=== PATIENT | male | born 1995 | race Caucasian/White ===

== ENCOUNTER 2018-06-18 08:00 | Outpatient (RCR) | payer OTHER, SELFPAY ==
--- NOTE | 2018-06-12 10:52 | HP.PTEVAL ---
Patient's Visit Information BRIGITTE PRUETT is a 22 year old M referred to Physical Therapy by Kenneth Byrd PA-C with a diagnosis of R AC separation. Date of Evaluation: 06/12/18 Physical Therapist: Obi Boateng, CHELSEAT, OCS, CSCS - Visit Plan Frequency: 3x /Week Duration: 4-6 Weeks Plan: 3x/week for 3-6 weeks for: 1. ROM R shoulder, strength posture and RC. 2. gradual incrrease WB ex to tolerance in prep for [email or web address] sports specific. Slow steady progression. 3. may use ES, Mh as needed. - Subjective Findings: R shoulder has AC seperation sustained during [employer] race missed jump. That was two weeks ago 06/01/18. Went to ER in [facility] and got x rays which showed dislocation of AC R. Referred to [facility] and then referred to PT. Will go back again. Was in a sling for last couple weeks and taken out of sling today. No precautions given, listen to body. Pain is 2/10 at rest and lifting is 3/10, reaching back hurts alot more and reaching across body is sharp 7/10 pain. Does have some moments withotu pain. Movement hurts. Overall is 60% better. Sleeping OK, hurts if he rolls on it. otherwise sleeping well. 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 Race every two to three weeks then. Doctor told him that time frame may be unrealistic but not recommended to race in twenty days. Hasn't been back on bike. Does things left handed lately due to sling but is left handed, cant lift with R. - Pain L top shoulder. Pain Intensity (Out of 10): 2 Pain Intensity Range: 0, 7 - Objective R hump where acromion adn clavicle come together, slightly larger R vs L. Fw head and scap posture slightly. C/S aROM WFL and without pain. reflexes 2/3 bi and tri. Tender to palpation over AC joint R moderatley. sensation B UE WNl to gross light touch. AROM R shoulder is full but slow and painful at end rangess of flexion, abd, ext rot and IR. horiz adduction is limited to just shy of neutral at 80 flexion. PROM numbers are consistent with active. Strength in ext rotation R 4- IR 4+, flexion 4- and abd 4- and painful with er, flexion, abd slightly. L shoulder is 5/5. Biceps wrist adn thumb srength adn mtoion WNL. - ext rotation lag test, - drop arm today, - HK test. - Goals Goal 1:: Sleep without noticing R shoulder Goal Time Frame: 2-4 Weeks Goal 2:: Full aROM without pain Goal Time Frame: 2-4 Weeks Goal 3:: Patient able to tolerate UE WB without noticing R shoulder Goal Time Frame: 2-4 Weeks Goal 4:: Patient ready to get back to motocross riding Goal Time Frame: 4-6 Weeks Goal 5:: Pt feel 100% back to normal Goal Time Frame: 4-6 Weeks - Rehabilitation Potential Physical Therapy Diagnosis: R AC separation traumatic. Rehabilitation Potential: Fair - Anticipated Interventions Patient/Client Instruction: Educate patient on: Condition, Plan of Care For the Purpose of:: To decrease pain, To increase ROM, To improve nutrient delivery to tissue, To improve muscle performance and motor function, To improve ability of physical actions for home/community/work/leisure Therapeutic Exercise to Include: Strength training, Flexibilty training, Passive ROM, Active ROM For the Purpose of:: To decrease pain, To increase ROM, To improve nutrient delivery to tissue, To increase tolerance to activity/condition/position, To improve ability of physical actions for home/community/work/leisure TENS: Yes Cryotherapy (ice pack, ice massage): Yes For the Purpose of:: To decrease pain Thank you for the opportunity to evaluate your patient. For Medicare and Medicare HMO plans, please review the plan of care and approve it. It will need to be FAXED BACK to us at [phone] for Medicare purposes. For Medicare only, by signing this I certify the plan of care. Please let me know if there are questions or concerns regarding this plan of care. Physician Signature: Date:
--- NOTE | 2018-07-22 16:22 | HP.PTDCNRP_ITS ---
HP - Discharge Summary (1) - Patient Information BRIGITTE PRUETT was seen in my office for initial evaluation on 06/12/18. The following Plan of Care was established for this patient: Initial Frequency: 3x /Week Initial Duration: 4-6 Weeks - Anticipated Interventions Patient/Client Instruction: Educate patient on: Condition, Plan of Care For the Purpose of:: To decrease pain, To increase ROM, To improve nutrient de livery to tissue, To improve muscle performance and motor function, To improve ability of physical actions for home/community/work/leisure Therapeutic Exercise to Include: Strength training, Flexibilty training, Passive ROM, Active ROM For the Purpose of:: To decrease pain, To increase ROM, To improve nutrient delivery to tissue, To increase tolerance to activity/condition/position, To improve ability of physical actions for home/community/work/leisure TENS: Yes Cryotherapy (ice pack, ice massage): Yes For the Purpose of:: To decrease pain This patient was last seen in our office 06/18/18. Pertinent comments regarding their Physical therapy will appear below: Pt seen 3 visits of POC. He cancelled or no showed for the next three and neglected to reschedule. IT has been over a month and I will discontinue due to nonattendance. At this point I will be discontinuing this patient from physical therapy. I would be happy to see this patient again in the future if found appropriate by the physician. Thank you! Obi Boateng, DPT, OCS, CSCS
== END 2018-06-18 19:00 | disposition home or self-care (01) ==
LOC: PT 08:00
PROVIDERS: Referring Provider Physician Assistant; Visit Provider Physician Assistant
DX: S43.121D Dislocation of right acromioclavicular joint, 100%-200% displacement, subsequent encounter (principal)
CPT/HCPCS: 97110; 97161